=== PATIENT | female | born 1965 | race Native Hawaiian/Other Pacific Islander ===

== ENCOUNTER 2018-09-20 22:08 | Emergency (ER) | payer OTHER ==
[~2018-09-20] VITALS: Ht 167.6 cm; Wt 54.4 kg
[2018-09-20 22:48] LABS: PLATELET COUNT 321 K/uL (152-353)
[2018-09-20 22:57] LABS: POTASSIUM 3.6 mmol/L (3.6-5.2)
[2018-09-20] MEDS ORDERED: BENZTROPINE0.5 MG PO (23:20)
[2018-09-20] MEDS ORDERED: CYAN10009 IM (23:21)
[2018-09-20] MEDS ORDERED: DECADRON4 MG PO (23:22)
[2018-09-20] MEDS ORDERED: DULOXETINE HYDR60 MG PO (23:23)
[2018-09-20] MEDS ORDERED: KP FOLIC ACID1 MG PO (23:27)
[2018-09-20] MEDS ORDERED: IPRAAER INH (23:28)
[2018-09-20] MEDS ORDERED: MS CONTIN60 MG PO (23:30)
[2018-09-20] MEDS ORDERED: OMEPRAZOLE DR20 MG PO (23:30)
[2018-09-20] MEDS ORDERED: CVS SENNA8.6 MG PO (23:31)
[2018-09-20] MEDS ORDERED: LAMOTRIGINE ER25 MG PO (23:31)
[2018-09-20] MEDS ORDERED: MIRTAZAPINE7.5 MG PO (23:32)
[2018-09-20] MEDS ORDERED: ENSURE PLUS PO (23:33)
[2018-09-20] MEDS ORDERED: RISP0.5T2 PO (23:34)
[2018-09-20] MEDS ORDERED: ALBU90AE13 INH (23:35)
[2018-09-20] MEDS ORDERED: CLON0.5T36 PO (23:36)
[2018-09-20] MEDS ORDERED: BISACODYL LAXAT10 MG RE (23:36)
[2018-09-20] MEDS ORDERED: ZOFRAN ODT4 MG PO (23:37)
[2018-09-20] MEDS ORDERED: ALBUSOL INH (23:37)
[2018-09-21 00:25] VITALS: BP 136/90; TEMP 97.7
== END 2018-09-21 00:25 | disposition other institution (70) ==
LOC: ED 22:08
PROVIDERS: Internal Medicine
DX: J18.9 Pneumonia, unspecified organism (principal); R46.89 Other symptoms and signs involving appearance and behavior; F32.89 Other specified depressive episodes; Z04.6 Encounter for general psychiatric examination, requested by authority
CPT/HCPCS: 80053; 85027; 93005; 99285